=== PATIENT | female | born 1975 | race Two or more races ===

== ENCOUNTER → 2024-11-07 | Outpatient (CLI) | payer MEDICAID, SELFPAY ==
--- NOTE | 2024-11-07 12:00 | XR_ITS ---
Examination: MRI bilateral breasts without intravenous contrast MRI bilateral breasts with intravenous contrast Date and time: November 08, 2023 at 1346 hours Comparison MR breast September 30, 2023 INDICATIONS: Diagnosis unspecified lump right breast breast pain, history bilateral breast lumps which have increased in size TECHNIQUE AND FINDINGS: Bilateral breast MRI images pre and post 15 cc gadolinium The breasts are heterogeneously dense, which may obscure small masses 12:00 cyst nonenhancing, right breast, 30 mm No suspicious dominant mass lesion noted No chest wall mass No axillary lymphadenopathy Significant background breast enhancement IMPRESSION: BI-RADS Category 0: Incomplete: Need additional imaging evaluation 12:00 benign cyst right breast 30 mm Given the patient's presentation, recommend diagnostic mammography and bilateral breast sonography follow-up
== END | disposition home or self-care (01) ==
PROVIDERS: PCP Plastic Surgery; Referring Provider Plastic Surgery; Visit Provider Plastic Surgery
DX: N60.01 Solitary cyst of right breast (principal)
CPT/HCPCS: 77049; A9579; C8908